=== PATIENT | male | born 1985 | race Asian ===

== ENCOUNTER 2024-01-10 13:32 | Emergency (ER) | payer MEDICAID ==
[~2024-01-10] VITALS: Ht 167.6 cm; Wt 90.9 kg
[2024-01-10] MEDS ORDERED: CLIN-97 PO (14:33)
[2024-01-10] MEDS ORDERED: IBUP-864 PO (14:33)
[2024-01-10] MEDS: clindamycin 150mg capsule PO ONE (14:39)
[2024-01-10 14:43] VITALS: BP 139/90; PULSE 85; RESP 16; TEMP 98.8; O2SAT 99
== END 2024-01-10 14:45 | disposition home or self-care (01) ==
LOC: ER 13:33
DX: K05.30 Chronic periodontitis, unspecified (principal); K04.7 Periapical abscess without sinus; F17.200 Nicotine dependence, unspecified, uncomplicated
CPT/HCPCS: 99283

== ENCOUNTER 2024-01-25 15:24 | Emergency (ER) | payer MEDICAID ==
[~2024-01-25] VITALS: Ht 167.6 cm; Wt 90.9 kg
[~2024-01-25 15:24] MED LIST: CLIN-97 PO; IBUP-864 PO
[2024-01-25] MEDS ORDERED: CLIN300C63 PO (15:56)
[2024-01-25] MEDS ORDERED: IBUP-1984 PO (15:56)
[2024-01-25 16:04] VITALS: BP 114/62; PULSE 68; RESP 14; TEMP 97.7; O2SAT 97
== END 2024-01-25 16:04 | disposition home or self-care (01) ==
LOC: ER 15:25
DX: A48.8 Other specified bacterial diseases (principal); Z76.0 Encounter for issue of repeat prescription; Z79.2 Long term (current) use of antibiotics
CPT/HCPCS: 99283

== ENCOUNTER 2024-02-23 14:09 | Emergency (ER) | payer MEDICAID ==
[~2024-02-23] VITALS: Ht 167.6 cm; Wt 90.9 kg
[~2024-02-23 14:09] MED LIST changes: +IBUP-1984 PO
[2024-02-23 14:11] VITALS: BP 124/91; PULSE 83; RESP 16; TEMP 96.2; O2SAT 99
[2024-02-23] MEDS ORDERED: AMOX-117 PO (14:55)
[2024-02-23] MEDS ORDERED: IBUP-1984 PO (14:55)
== END 2024-02-23 15:07 | disposition home or self-care (01) ==
LOC: ER 14:09
DX: K04.7 Periapical abscess without sinus (principal); Z76.0 Encounter for issue of repeat prescription; Z79.1 Long term (current) use of non-steroidal anti-inflammatories (NSAID)
CPT/HCPCS: 99283

== ENCOUNTER 2024-03-06 14:21 | Emergency (ER) | payer MEDICAID ==
[~2024-03-06] VITALS: Ht 167.6 cm; Wt 90.9 kg
[2024-03-06 14:25] VITALS: BP 141/98; PULSE 97; TEMP 98; O2SAT 98
[2024-03-06] MEDS ORDERED: ATOR20TA66 PO (15:12)
[2024-03-06] MEDS ORDERED: ESCI5TAB16 PO (15:12)
[2024-03-06] MEDS ORDERED: MIRT-92 PO (15:12)
[2024-03-06] MEDS ORDERED: VALS40TA2 PO (15:12)
[2024-03-06] MEDS ORDERED: FAMO20TA8 PO (15:12)
[2024-03-06 15:55] VITALS: RESP 18
== END 2024-03-06 15:57 | disposition home or self-care (01) ==
LOC: ER 14:22
DX: I10 Essential (primary) hypertension (principal); E78.00 Pure hypercholesterolemia, unspecified; Z76.0 Encounter for issue of repeat prescription; Z79.1 Long term (current) use of non-steroidal anti-inflammatories (NSAID); Z79.899 Other long term (current) drug therapy
CPT/HCPCS: 99281

== ENCOUNTER 2024-04-12 11:01 | Emergency (ER) | payer MEDICAID ==
[~2024-04-12] VITALS: Ht 160 cm; Wt 73.8 kg
[~2024-04-12 11:01] MED LIST changes: +ATOR20TA66 PO; +ESCI5TAB16 PO; +FAMO20TA8 PO; -IBUP-1984 PO; +MIRT-92 PO; +VALS40TA2 PO
[2024-04-12] MEDS ORDERED: ATOR20TA PO (11:59)
[2024-04-12] MEDS ORDERED: VALS80TA2 PO (11:59)
[2024-04-12] MEDS ORDERED: ESCI5TAB PO (11:59)
[2024-04-12] MEDS ORDERED: MIRT-92 PO (11:59)
[2024-04-12] MEDS ORDERED: FAMO20TA8 PO (11:59)
[2024-04-12 12:08] VITALS: BP 114/67; PULSE 66; RESP 16; TEMP 98; O2SAT 99
== END 2024-04-12 12:10 | disposition home or self-care (01) ==
LOC: ER 11:01
DX: I10 Essential (primary) hypertension (principal); E78.00 Pure hypercholesterolemia, unspecified; Z76.0 Encounter for issue of repeat prescription
CPT/HCPCS: 99281

== ENCOUNTER 2024-06-04 11:03 | Emergency (ER) | payer MEDICAID ==
[~2024-06-04] VITALS: Ht 170.2 cm; Wt 76.6 kg
[2024-06-04 11:16] VITALS: TEMP 97.6
[2024-06-04] MEDS ORDERED: ESCI5TAB17 PO (12:47)
[2024-06-04] MEDS ORDERED: VALS80TA32 PO (12:47)
[2024-06-04] MEDS ORDERED: ATOR20TA PO (12:47)
[2024-06-04] MEDS ORDERED: MIRT-142 PO (12:47)
[2024-06-04 13:40] VITALS: BP 155/100; PULSE 76; RESP 16; O2SAT 96
== END 2024-06-04 13:43 | disposition home or self-care (01) ==
LOC: ER 11:04
DX: I10 Essential (primary) hypertension (principal); E78.00 Pure hypercholesterolemia, unspecified; Z76.0 Encounter for issue of repeat prescription; Z79.1 Long term (current) use of non-steroidal anti-inflammatories (NSAID); Z79.899 Other long term (current) drug therapy
CPT/HCPCS: 99281